=== PATIENT | female | born 1965 | race Caucasian/White ===

== ENCOUNTER 2017-10-22 08:29 | Emergency (ER) | payer SELFPAY ==
[~2017-10-22] VITALS: Ht 152.4 cm; Wt 63.5 kg
[~2017-10-22 08:29] MED LIST: COLC0.6T7 PO; CYCL10TA45 PO; HYDR-3720 PO; HYDR1TAB PO; METH4TAB PO; PRED20TA PO
--- OUTSIDE RECORDS SUMMARY | 2017-10-22 08:37 | XMS REPORT | Continuity of Care Document ---
Author Author [facility] Organization [facility] [address] Address Unknown Phone Unavailable Allergies Active Description Code Type Severity Reaction Onset Reported/Identified Relationship to Patient Clinical Status Yes No Known Drug Allergies [id number] Drug Allergy Unknown N/A 08/07/2011 Medications There is no data. Problems Date Dx Coded Attending Type Code Diagnosis Diagnosed By 08/07/2011 Ot 274.9 08/07/2011 Ot 729.5 Procedures There is no data. Results There is no data. Encounters ACCT No. Visit Date/Time Discharge Status Pt. Type Provider Facility Loc./Unit Complaint [id number] 12/29/2014 08:17:00 12/29/2014 10:42:00 DIS Emergency ROSIBEL SHABAZZ, MAGALI Guerin [facility] [address] ER [id number] 08/07/2011 17:33:00 Document Registration
--- NOTE | 2017-10-22 09:06 | ED EENT ---
History of Present Illness General Chief Complaint: Ear Problems Stated Complaint: EARACHE Nursing Triage Note: TO ROOM C/O EAR PAIN SINCE FRIDAY Source: patient Exam Limitations: no limitations History of Present Illness Date Seen by Provider: October 22, 2017 Time Seen by Provider: 08:40 Initial Comments Here with complaint of intermittent right ear pain for the last 3 days. It is getting better with ibuprofen or Aleve. Seems to still be persisting. She was worried about ear infection. Denies fever or chills. Denies significant nasal congestion but reports has some. Does not typically have allergies. Timing/Duration: intermittent, other Severity: moderate Location: ear (R) Prearrival Treatment: over the counter meds Associated Symptoms: No cough, No ear drainage, No facial pain/swelling, No fever; nasal congestion/drainage; No sore throat, No tooth pain, No voice change Allergies and Home Medications Allergies Coded Allergies: No Known Drug Allergies (Unverified , 08/07/11) Home Medications Cyclobenzaprine Hcl 10 Mg Tablet, 10 MG PO BID Prescribed by: MAGALI GLEASON on 12/29/14 1030 Hydrocodone Bit/Acetaminophen 1 Each Tablet, 1-2 EACH PO Q4-6HR PRN for PAIN Prescribed by: MAGALI GLEASON on 12/29/14 1030 Prednisone 20 Mg Tablet, 20 MG PO DAILY Prescribed by: MAGALI GLEASON on 12/29/14 1030 Patient Home Medication List Home Medication List Reviewed: Yes (not currently on any medicines) Review of Systems Constitutional: see HPI; No chills, No fever Eyes: No Symptoms Reported Ears: See HPI, Pain; Denies Purulent Discharge Nose: congestion; denies pain Mouth: no symptoms reported Throat: no symptoms reported Respiratory: no symptoms reported Cardiovascular: no symptoms reported Skin: no symptoms reported Past Hzhctal-Wfpaak-Goawud Hx Past Med/Social Hx: Reviewed Nursing Past Med/Soc Hx Patient Social History Alcohol Use: Denies Use Recreational Drug Use: No Recent Foreign Travel: No Contact w/Someone Who Travel: No Recent Infectious Disease Expo: No Past Medical History Surgeries: No Respiratory: No Cardiac: No Neurological: No Gastrointestinal: No Musculoskeletal: No Endocrine: No Cancer: No Psychosocial: No Family Medical History Reviewed Nursing Family Hx No Pertinent Family Hx Physical Exam General Appearance: WD/WN, no apparent distress Eyes: bilateral eye normal inspection, bilateral eye PERRL, bilateral eye EOMI Ears: right ear TM bulging; left ear TM normal; bilateral ear auricle normal, bilateral ear canal normal Nose: normal inspection Mouth/Throat: normal mouth inspection, pharynx normal Neck: non-tender, full range of motion, supple, normal inspection Cardiovascular: regular rate, rhythm, no murmur Respiratory: lungs clear, normal breath sounds, no respiratory distress Neurologic/Psychiatric: alert, oriented x 3 Progress/Results/Core Measures Results/Orders Blood Pressure Mean: 116 Progress Progress Note : Progress Note Seen and evaluated. We will write for outpatient prescriptions. Discharged home with return. Patient verbalize understanding instructions and agreement with plan. Departure Impression Primary Impression: Otalgia of right ear Disposition: HOME, SELF-CARE Condition: Improved Departure-Patient Inst. Decision time for Depature: 09:04 Referrals: SYLVIA BOND MD (PCP/Family) Primary Care Physician Patient Instructions: Ear Infections (Otitis Media) (DC) Add. Discharge Instructions: All discharge instructions reviewed with patient and/or family. Voiced understanding. Take medications as directed. You may use Afrin nasal spray or the generic, 12 hour relief, 2 sprays to each nostril twice daily for 3 days only and then stop. Do not use more than 3 days. You may use [id number] allergy medicine such as Claritin/loratadine or similar as needed for allergy symptoms. You were given a written antibiotic prescription that you should fill only if the other therapy is not working over the next 2 days. If that other therapy fails, fill the prescription for the antibiotic and take them until complete. Follow up with your DrElodia in a few days for recheck. Return for worsening, fever , vomiting, weakness, breathing problems or other concerns as needed. Scripts Amoxicillin (Amoxicillin) 500 Mg Capsule 1000 MG PO TID, #60 CAP 0 Refills Prov: JEANNETTE HENRIQUEZ MD 10/22/17 Prednisone (Prednisone) 20 Mg Tab 40 MG PO DAILY, #6 TAB 0 Refills Prov: JEANNETTE HENRIQUEZ MD 10/22/17 JEANNETTE HENRIQUEZ MD October 22, 2017 09:06
[2017-10-22] MEDS ORDERED: AMOX500C2 PO (09:08)
[2017-10-22] MEDS ORDERED: PRD20T PO (09:08)
[2017-10-22 09:14] VITALS: BP 143/102
== END 2017-10-22 09:18 | disposition home or self-care (01) ==
LOC: EDUNIT# 08:29 → ER 08:33
DX: H92.01 Otalgia, right ear (principal); Z79.52 Long term (current) use of systemic steroids
CPT/HCPCS: 99282

== ENCOUNTER 2018-10-06 09:37 | Emergency (ER) | payer SELFPAY ==
[~2018-10-06] VITALS: Ht 152.4 cm; Wt 59.9 kg
[~2018-10-06 09:37] MED LIST changes: +AMOX500C2 PO; +PRD20T PO
--- NOTE | 2018-10-06 09:53 | ED Integumentary General ---
General Stated Complaint: POSS ABSCESS UNDER LEFT ARM PAIN/SWOLLEN Source: patient, RN notes reviewed Exam Limitations: no limitations History of Present Illness Date Seen by Provider: Oct 06, 2018 Time Seen by Provider: 09:48 Initial Comments Patient presents c/ c/o left axilla and to a lesser extent left sided chest pain x 5 days. No known cause. No injury, or trauma. Worse this AM when running. No known fever. Has had a mild cough. Never had anything like this before. Timing/Duration: other (5 days) Severity: moderate (8/10) Location: torso (left axilla) Possible Cause: no cause identified Associated Symptoms: denies symptoms; No fever, No rash; other (c/o left axilla swelling) Allergies and Home Medications Allergies Coded Allergies: No Known Drug Allergies (Unverified , 08/07/11) Home Medications Meloxicam 7.5 Mg Tablet, 7.5 MG PO [id number] PRN for pain Prescribed by: MATTHEW MARAVILLA on 10/06/18 1110 Methocarbamol 750 Mg Tablet, 1,500 MG PO TID PRN for muscle spasm Prescribed by: MATTHEW MARAVILLA on 10/06/18 1110 Patient Home Medication List Home Medication List Reviewed: No Review of Systems Review of Systems Constitutional: see HPI Cardiovascular: see HPI, chest pain (left sided) Musculoskeletal: see HPI, other (left axilla pain) All Other Systems Reviewed Negative Unless Noted: Yes (Negative excepted noted.) Past Fsjhgjx-Oaepox-Izlpvo Hx Patient Social History Recent Foreign Travel: No Contact w/Someone Who Travel: No Past Medical History Surgeries: No Respiratory: No Cardiac: No Neurological: No Gastrointestinal: No Musculoskeletal: No Endocrine: No Cancer: No Psychosocial: No Family Medical History No Pertinent Family Hx Physical Exam Vital Signs Vital Signs - First Documented 10/06/18 09:40 Temp 97.9 Pulse 64 Resp 18 B/P (MAP) 154/96 (115) Pulse Ox 98 Capillary Refill : General Appearance: WD/WN, no apparent distress Cardiovascular: regular rate, rhythm Respiratory: chest non-tender, no respiratory distress Neurologic/Psychiatric: no motor/sensory deficits, alert, normal mood/affect, oriented x 3 Skin: warm/dry Skin Problem Character: tenderness (left axilla), warm Lymphatic: no adenopathy Progress/Results/Core Measures Results/Orders My Orders Orders - MATTHEW MARAVILLA DO Ct Chest Wo (10/06/18 09:51) Vital Signs/I&O 10/06/18 09:40 Temp 97.9 Pulse 64 Resp 18 B/P (MAP) 154/96 (115) Pulse Ox 98 Diagnostic Imaging Diagonstic Imaging: CT Plain Films/CT/US/NM/MRI: chest (unremarkable) Departure Impression Primary Impression: Pain in left axilla Disposition: HOME, SELF-CARE Condition: Stable Departure-Patient Inst. Decision time for Depature: 11:07 Referrals: SYLVIA BOND MD (PCP/Family) Primary Care Physician Patient Instructions: Muscle and Bone Pain (DC) Scripts Methocarbamol (Robaxin-750) 750 Mg Tablet 1500 MG PO TID PRN for muscle spasm, #60 TAB 0 Refills Prov: MATTHEW MARAVILLA DO 10/06/18 Meloxicam (Mobic) 7.5 Mg Tablet 7.5 MG PO [id number] PRN for pain, #30 TAB 0 Refills Prov: MATTHEW MARAVILLA DO 10/06/18 MATTHEW MARAVILLA DO Oct 06, 2018 09:53
--- OUTSIDE RECORDS SUMMARY | 2018-10-06 09:57 | XMS REPORT ---
Author Author HERI PERRIN [facility] Address [address] [place] [address] Care Team Providers Care Talent Sourcer Name Role Phone HERI PERRIN Unavailable PROBLEMS Unknown Problems ALLERGIES No Information ENCOUNTERS Encounter Location Date Diagnosis [facility] [id number] [phone] Jul, 2017 [facility] [id number] [place] [phone] Jun, Encounter for drug screening Z02.83 ; Visit for TB skin test Z11.1 and Encounter for PPD test Z11.1 [facility] [address], [place] [phone] 17 Jul, [address] [facility] [id number] [id number] 09 Jul, 2015 Dental examination Z01.20 IMMUNIZATIONS No Known Immunizations SOCIAL HISTORY Never Assessed REASON FOR VISIT UA/TB test PLAN OF CARE VITAL SIGNS MEDICATIONS Unknown Medications RESULTS No Results PROCEDURES No Known procedures INSTRUCTIONS MEDICATIONS ADMINISTERED No Known Medications
--- OUTSIDE RECORDS SUMMARY | 2018-10-06 09:57 | XMS REPORT | Continuity of Care Document ---
Author Organization Unknown Address Unknown Allergies Active Description Code Type Severity Reaction Onset Reported/Identified Relationship to Patient Clinical Status Yes No Known Drug Allergies [id number] Drug Allergy Unknown N/A 08/07/2011 Medications There is no data. 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 Results There is no data. Encounters ACCT No. Visit Date/Time Discharge Status Pt. Type Provider Facility Loc./Unit Complaint [id number] 10/22/2017 08:33:00 10/22/2017 09:18:00 DIS Outpatient JEANNETTE HENRIQUEZ MD [facility] ER EARACHE [id number] 12/29/2014 08:17:00 12/29/2014 10:42:00 DIS Emergency ROSIBEL SHABAZZ, MAGALI Guerin [facility] ER FALL LOWER BACK/LEFT HIP/ LEG PAIN [id number] 08/07/2011 17:33:00 Document Registration
--- NOTE | 2018-10-06 10:59 | Diagnostic Imaging Report ---
PROCEDURE: CT chest without contrast. TECHNIQUE: Multiple contiguous axial images were obtained through the chest without the use of intravenous contrast. Auto Exposure Controls were utilized during the CT exam to meet ALARA standards for radiation dose reduction. INDICATION: Left sided chest and axillary pain with cough symptoms 5 days duration. No priors. There is no evidence for pulmonary contusion or hemorrhage. No infiltrate or consolidation. No findings of aspiration. No pleural fluid or pneumothorax. No acute soft tissue or osseous chest wall pathology is apparent. Aorta is nonaneurysmal. There are no findings of lymphadenopathy. No mass. The upper abdomen showed no free fluid or free air. IMPRESSION: No acute or suspicious abnormality identified. Dictated by: Dictated on workstation # [id number]
[2018-10-06] MEDS ORDERED: MELO-170 PO (11:10)
[2018-10-06] MEDS ORDERED: METH-313 PO (11:10)
[2018-10-06 11:23] VITALS: BP 154/96
== END 2018-10-06 11:23 | disposition home or self-care (01) ==
LOC: EDUNIT# 09:37 → ER 09:41
DX: M25.512 Pain in left shoulder (principal)
CPT/HCPCS: 71250

== ENCOUNTER 2019-07-19 09:54 | Emergency (ER) | payer SELFPAY ==
[~2019-07-19] VITALS: Ht 155 cm; Wt 58.5 kg
[~2019-07-19 09:54] MED LIST changes: +MELO-170 PO; +METH-313 PO
--- NOTE | 2019-07-19 12:05 | ED Integumentary General ---
General Chief Complaint: Skin/Wound Problems Stated Complaint: RASH Nursing Triage Note: pt reports rash x3 weeks. after 1 week of stephanie being presen, went to [facility] and was given cream to apply for 2 weeks. Pt reports rash has gotten worse. Rash is from chest all the way to feet and starting on arms. Source: patient Exam Limitations: no limitations History of Present Illness Date Seen by Provider: Jul 19, 2019 Time Seen by Provider: 11:46 Initial Comments Here with report of rash it's been going on for the last couple of weeks that is itchy. She was seen at the [facility] and started on antifungal which has not changed the rash at all. Timing/Duration: getting worse, other Severity: moderate Location: generalized (not including face or neck) Possible Cause: no cause identified Modifying Factors: improves with other (topical antifungals) Associated Symptoms: No fever, No nasal congestion; rash Allergies and Home Medications Allergies Coded Allergies: No Known Drug Allergies (Unverified , 08/07/11) Home Medications Meloxicam 7.5 Mg Tablet, 7.5 MG PO [id number] PRN for pain Prescribed by: MATTHEW MARAVILLA on 10/06/18 1110 Methocarbamol 750 Mg Tablet, 1,500 MG PO TID PRN for muscle spasm Prescribed by: MATTHEW MARAVILLA on 10/06/18 1110 Patient Home Medication List Home Medication List Reviewed: Yes Review of Systems Review of Systems Constitutional: no symptoms reported Respiratory: no symptoms reported Cardiovascular: no symptoms reported Skin: see HPI, pruritus, rash Past Tywezkt-Caqucm-Hliljg Hx Past Med/Social Hx: Reviewed Nursing Past Med/Soc Hx Patient Social History Alcohol Use: Denies Use Recreational Drug Use: Yes Drug of Choice: marijuana Type Used: Cigarettes Recent Foreign Travel: No Contact w/Someone Who Travel: No Recent Infectious Disease Expo: No Recent Hopitalizations: No Physical Abuse: No Sexual Abuse: No Seasonal Allergies Seasonal Allergies: No Past Medical History Surgeries: No Respiratory: No Cardiac: No Neurological: No Genitourinary: No Gastrointestinal: No Fractures Endocrine: No HEENT: No Cancer: No Psychosocial: No Integumentary: No Blood Disorders: No Family Medical History Reviewed Nursing Family Hx No Pertinent Family Hx Physical Exam Vital Signs Vital Signs - First Documented 07/19/19 10:51 Temp 36.5 Pulse 54 Resp 14 B/P (MAP) 182/89 (120) Pulse Ox 98 O2 Delivery Room Air Capillary Refill : Less Than 3 Seconds General Appearance: WD/WN, no apparent distress Cardiovascular: regular rate, rhythm, no murmur Respiratory: lungs clear, normal breath sounds Gastrointestinal: non tender, soft Skin: warm/dry Skin Problem Location: upper extremities, torso, lower extremities Skin Problem Character: erythema, lesion, macules, rash Lymphatic: no adenopathy Progress/Results/Core Measures Results/Orders Vital Signs/I&O 07/19/19 10:51 Temp 36.5 Pulse 54 Resp 14 B/P (MAP) 182/89 (120) Pulse Ox 98 O2 Delivery Room Air Blood Pressure Mean: 120 Progress Progress Note : Progress Note Seen and evaluated. Patient has not responded antifungals. We will initiate steroids although this may be viral exanthem or other postinfectious exanthem. This is discussed with the patient. She will try steroids for a week and then follow up with her doctor for referral to dermatology if needed. Discharged home with return precautions. Patient verbalize understanding instructions and agreement with plan. Departure Impression Primary Impression: Rash and nonspecific skin eruption Disposition: 01 HOME, SELF-CARE Condition: Stable Departure-Patient Inst. Decision time for Depature: 12:16 Referrals: SYLVIA BOND MD (PCP/Family) Primary Care Physician Patient Instructions: Skin Rash (DC) Add. Discharge Instructions: All discharge instructions reviewed with patient and/or family. Voiced understanding. Take medications as directed. Call and make appointment with her doctor for next week for recheck and further evaluation. This should improve within the next 7 days. You may take Benadryl/diphenhydramine 25 mg every 6 hours as needed for itching. Return for worsening, weakness, breathing problems, fever or other concerns as needed. Scripts Prednisone (Prednisone) 20 Mg Tab 40 MG PO DAILY, #14 TAB 0 Refills Prov: JEANNETTE HENRIQUEZ MD 07/19/19 JEANNETTE HENRIQUEZ MD Jul 19, 2019 12:05
[2019-07-19] MEDS ORDERED: PRD20T PO (12:17)
[2019-07-19 12:20] VITALS: BP 182/89
== END 2019-07-19 12:20 | disposition home or self-care (01) ==
LOC: EDUNIT# 09:54 → ER 09:55
DX: R21 Rash and other nonspecific skin eruption (principal)
CPT/HCPCS: 99282

== ENCOUNTER 2019-12-23 05:49 | Emergency (ER) | payer SELFPAY ==
[~2019-12-23] VITALS: Ht 152 cm; Wt 58.0 kg
[2019-12-23 06:04] VITALS: BP 143/76
--- NOTE | 2019-12-23 06:28 | ED Lower Extremity ---
General Chief Complaint: Lower Extremity Stated Complaint: LEFT ANKLE PAIN Nursing Triage Note: PT STATES SHE WAS CUTTING WOOD AND A PIECE BROKE OFF AND HIT ANKLE. WOKE UP THIS MORNING TO INCREASED REDNESS AND PAIN, NO SWELLING NOTED TO AREA. AMBULATORY IN TRIAGE. Nursing Sepsis Screen: No Definite Risk Source: patient Exam Limitations: no limitations History of Present Illness Date Seen by Provider: Dec 23, 2019 Time Seen by Provider: 06:13 Initial Comments Here with report of left medial ankle pain after she inadvertently hit herself in that area. 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 Apparently a board broke off and came down and hit the medial ankle. Pain immediately to that area. Occurred at 4:30 PM yesterday. Is having difficulty overnight 80 time something touched it and when she tried to go work this morning and was putting on her shoes she states that it was very painful were her temperature she was touching the area. She is able to walk on it some but anything touching the medial ankle causes significant pain. She does have some pain on walking. Notes a little bruising and does have superficial abrasion but no obvious deformity. Onset: yesterday Severity: moderate Pain/Injury Location: left ankle Method of Injury: direct blow Modifying Factors: Improves With Immobilization; Worse With Movement Allergies and Home Medications Allergies Coded Allergies: No Known Drug Allergies (Unverified , 08/07/11) Home Medications Meloxicam 7.5 Mg Tablet, 7.5 MG PO [id number] PRN for pain Prescribed by: MATTHEW MARAVILLA on 10/06/18 1110 Methocarbamol 750 Mg Tablet, 1,500 MG PO TID PRN for muscle spasm Prescribed by: MATTHEW MARAVILLA on 10/06/18 1110 Prednisone 20 Mg Tab, 40 MG PO DAILY Prescribed by: JEANNETTE HENRIQUEZ on 07/19/19 1217 Patient Home Medication List Home Medication List Reviewed: Yes Review of Systems Constitutional: No chills, No fever Respiratory: no symptoms reported Cardiovascular: no symptoms reported Musculoskeletal: joint pain, joint swelling Skin: change in color, lesions Past Zwmwykt-Xyvkvx-Ipjnui Hx Past Med/Social Hx: Reviewed Nursing Past Med/Soc Hx Patient Social History Alcohol Use: Denies Use Recreational Drug Use: No Drug of Choice: marijuana Smoking Status: Light Tobacco Smoker Type Used: Cigarettes 2nd Hand Smoke Exposure: Yes Recent Foreign Travel: No Contact w/Someone Who Travel: No Recent Infectious Disease Expo: No Recent Hopitalizations: No Physical Abuse: No Sexual Abuse: No Mistreated: No Fear: No Seasonal Allergies Seasonal Allergies: No Past Medical History Surgeries: No Respiratory: No Cardiac: No Neurological: No Genitourinary: No Gastrointestinal: No Fractures Endocrine: No HEENT: No Cancer: No Psychosocial: No Integumentary: No Blood Disorders: No Family Medical History Reviewed Nursing Family Hx No Pertinent Family Hx Physical Exam Vital Signs Vital Signs - First Documented 12/23/19 06:04 Temp 36.0 Pulse 71 Resp 16 B/P (MAP) 143/76 (98) Pulse Ox 96 O2 Delivery Room Air Capillary Refill : Less Than 3 Seconds Height, Weight, BMI Height: 5'0" Weight: 132lbs. oz. 59.165216xs; 25.00 BMI Method:Stated General Appearance: WD/WN, no apparent distress Cardiovascular: regular rate, rhythm, no murmur Respiratory: lungs clear, normal breath sounds Ankles: left ankle abrasions/lacerations (superficial, small abrasion medial ankle), left ankle bone tenderness (medial), left ankle ecchymosis (mild to medial aspect), left ankle limited range of motion, left ankle pain, left ankle soft tissue tenderness, left ankle other (findings to the medial aspect of the left ankle) Neurologic/Psychiatric: alert, oriented x 3 Skin: warm/dry, other (skin findings as above) Progress/Results/Core Measures Results/Orders My Orders Orders - JEANNETTE HENRIQUEZ MD Ankle, Left, 3 Views (12/23/19 06:22) Vital Signs/I&O 12/23/19 06:04 Temp 36.0 Pulse 71 Resp 16 B/P (MAP) 143/76 (98) Pulse Ox 96 O2 Delivery Room Air Blood Pressure Mean: 98 Progress Progress Note : Progress Note Seen and evaluated. Patient declined pain medicine currently. X-ray left ankle. Monitor patient. 0643: Ankle x-ray shows no acute fracture. We talked about measures to decrease pain including OTC medicines and padding as well as ice pack. She verbalized understanding. Discharged home with return precautions. Patient verbalize understanding instructions and agreement with plan. Patient's tetanus is up-to-date. Diagnostic Imaging Diagonstic Imaging: Xray Plain Films/CT/US/NM/MRI: ankle Comments Left ankle 3 view no acute fracture Reviewed: Reviewed by Me Departure Impression Primary Impression: Contusion of ankle Qualified Codes: S90.02XA - Contusion of left ankle, initial encounter Disposition: HOME, SELF-CARE Condition: Stable Departure-Patient Inst. Decision time for Depature: 06:45 Referrals: [facility] (PCP/Family) Primary Care Physician Patient Instructions: Contusion (DC), Skin Abrasions (DC) Add. Discharge Instructions: All discharge instructions reviewed with patient and/or family. Voiced understanding. You may take Tylenol 1000 mg every 8 hours as needed for pain. You may take ibuprofen 400 mg every 6-8 hours as needed for pain. Use ice packs to area of concern 20 minutes per hour as needed to reduce swelling and pain. Elevate as needed to reduce swelling and pain. Follow-up with your doctor in a few days for recheck if not improved. Return for worse pain, swelling, red streaks up the leg or other concerns as needed. Work/School Note: Work Release Form Date Seen in the Emergency Department: Dec 23, 2019 Return to Work: Dec 24, 2019 Restrictions: No Restrictions JEANNETTE HENRIQUEZ MD Dec 23, 2019 06:28
--- NOTE | 2019-12-23 06:52 | Diagnostic Imaging Report ---
INDICATION: Piece of wood hit medial aspect of the ankle. Pain. EXAMINATION: Left ankle dated 12/23/2019 FINDINGS: 3 views of the ankle. No acute fractures or dislocations are appreciated. The ankle mortise and talar dome appear unremarkable. There are chronic changes along the dorsum of the midfoot. Soft tissues unremarkable. No radiopaque foreign bodies. IMPRESSION: 1. No acute process. Dictated by: Dictated on workstation # [id number]
== END 2019-12-23 06:51 | disposition home or self-care (01) ==
LOC: EDUNIT# 05:49 → ER 05:52
DX: S90.02XA Contusion of left ankle, initial encounter (principal); F17.210 Nicotine dependence, cigarettes, uncomplicated; Z79.52 Long term (current) use of systemic steroids; W20.8XXA Other cause of strike by thrown, projected or falling object, initial encounter
CPT/HCPCS: 73610

== ENCOUNTER 2021-10-24 18:39 | Emergency (ER) | payer SELFPAY ==
[~2021-10-24] VITALS: Ht 152.4 cm; Wt 51.4 kg
[2021-10-24] MEDS ORDERED: ORPHENADRINE 60 MG/2 ML (NORFLEX) AMP (ED ONLY) IM ONE (19:00)
[2021-10-24] MEDS ORDERED: KETOROLAC 30 MG/ML VIAL IM ONE (19:00)
[2021-10-24] MEDS ORDERED: PRD50T PO (19:03)
--- NOTE | 2021-10-24 19:04 | ED Back Pain ---
General Chief Complaint: Back Problems Stated Complaint: LOWER BACK PAIN Nursing Triage Note: PT AMBULATORY INTO ER ROOM 8 WITH COMPLAINT OF BACK PAIN X5 DAYS. PT STATES THAT SHE WAS HELPING A FRIEND CARRY A COPY MACHINE (150 LBS) DOWN SOME STAIRS AND HER FRIEND DROPPED HER END CAUSING HER END TO SHIFT. PT STATES THAT BACK HAS HURT EVER SINCE. PT STATES THAT SHE HAS TAKEN IBUPROFEN WITHOUT RELIEF. PT STATES THAT SHE WANTS TO SEE IF SHE HURT BACK. Source of Information: Patient Exam Limitations: No Limitations History of Present Illness Date Seen by Provider: October 24, 2021 Time Seen by Provider: 18:48 Initial Comments Patient is a 55-year-old female who presents to the emergency department today with a chief complaint of left low back pain she points to the area of the posterior superior iliac crest. She states she was helping a friend move something on Friday, 4 days ago when her friend dropped her half and she bent forward and twisted. She states she was carrying something that was about 150 pounds. Patient states she has been taking ibuprofen, 3 tablets a couple of times a day her last dose was this morning. Its not really helping. Moving and twisting and walking make the pain worse, nothing really makes it any better. She has never had pain like this before. She denies any radiation of the pain down into her buttock or leg. No loss of bladder or bowel function. No numbness weakness or tingling in the left leg. The pain does not radiate. All other review of systems reviewed and negative except as stated. Timing/Duration: 4-5 Days Severity: Moderate Pain/Injury Location: Back Method of Injury: Other (Twisting injury) Modifying Factors: Worse With Movement Associated Symptoms: denies symptoms Allergies and Home Medications Allergies Coded Allergies: No Known Drug Allergies (Unverified , 08/07/11) Patient Home Medication List Home Medication List Reviewed: Yes Meloxicam (Mobic) 7.5 Mg Tablet, 7.5 MG PO [id number] PRN for pain Prescribed by: MATTHEW MARAVILLA on 10/06/18 111 Methocarbamol (Robaxin-750) 750 Mg Tablet, 1,500 MG PO TID PRN for muscle spasm Prescribed by: MATTHEW MARAVILLA on 10/06/18 111 Prednisone (Prednisone) 20 Mg Tab, 40 MG PO DAILY Prescribed by: JEANNETTE HENRIQUEZ on 2/3/20 1217 Prednisone (Prednisone) 50 Mg Tab, 50 MG PO DAILY Prescribed by: DELICIA REAVES on 10/24/21 190 Review of Systems Constitutional: see HPI EENTM: no symptoms reported Respiratory: no symptoms reported Cardiovascular: no symptoms reported Gastrointestinal: no symptoms reported Genitourinary: no symptoms reported : No Musculoskeletal: back pain Skin: no symptoms reported All Other Systems Reviewed Negative Unless Noted: Yes Past Ugrzhgq-Yjssml-Afuyys Hx Patient Social History Tobacco Use?: No Use of E-Cig and/or Vaping dev: No Substance use?: No Alcohol Use?: No Pt feels they are or have been: No Immunizations Up To Date Influenza Vaccine Up-to-Date: Yes; Up-to-Date Second COVID19 Vaccination [place]: 05/06 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 oz. [id number]; 22.00 BMI Method:Stated General Appearance: No Apparent Distress, WD/WN HEENT: PERRL/EOMI Neck: Normal Inspection Respiratory: No Accessory Muscle Use, No Respiratory Distress Gastrointestinal: Non Tender, Soft Back: Other (Patient has point tenderness of the left posterior superior iliac crest just adjacent to the sacrum. No overlying redness, swelling. Negative straight leg raise. DTRs 2+ bilateral patella. Normal sensation in both legs. 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 We will start her on 5 days of prednisone, recommended [id number] acid associate director of nursing such as Pepcid while taking ibuprofen and prednisone. Return precautions disc ussed. Patient verbalized understanding, all questions are sought and answered. Departure Impression Primary Impression: Sacroiliac joint dysfunction of left side Disposition: HOME, SELF-CARE Condition: Stable Departure-Patient Inst. Decision time for Depature: 19:02 Referrals: [facility] [place] ([place]/Family) Primary Care Physician Patient Instructions: Sacroiliac Joint Pain ED Add. Discharge Instructions: You can alternate heat and ice to the area of your back that is sore. I have prescribed you some prednisone to take over the next 5 days. Take it once a day while using ice and heat. You can take the ibuprofen, 3 tablets which is 600 mg every 6-8 hours as needed with food for pain. If you are taking ibuprofen and the prednisone together, you need to be taking an [id number] acid associate director of nursing such as Pepcid daily. Return to the emergency room if you notice a rash where the area of soreness is, if you develop leg weakness, numbness or tingling or you develop any other emergent concerning symptoms. Scripts Prednisone (Prednisone) 50 Mg Tab 50 MG PO DAILY for 5 Days, #5 TAB Prov: DELICIA REAVES MD 10/24/21 Work/School Note: Work Release Form Date Seen in the Emergency Department: October 24, 2021 Return to Work: October 26, 2021 DELICIA REAVES MD October 24, 2021 19:04
[2021-10-24 19:15] VITALS: BP 145/78
== END 2021-10-24 19:15 | disposition home or self-care (01) ==
LOC: EDUNIT# 18:39 → ER 18:41
DX: M46.1 Sacroiliitis, not elsewhere classified (principal); X50.1XXA Overexertion from prolonged static or awkward postures, initial encounter
CPT/HCPCS: 99284